=== PATIENT | male | born 1970 | race African-American/Black ===

== ENCOUNTER 2019-05-11 02:37 | Emergency (ER) | payer OTHER ==
--- NOTE | 2019-05-11 03:44 | RADIOLOGY REPORT (SQ) ---
EXAM DESCRIPTION: XR ANKLE 3 OR MORE VIEWS COMPLETED DATE/TME: 05/11/2019 00:00 CLINICAL HISTORY: 48 years, Male, accidentally kicked cabinet COMPARISON: None. NUMBER OF VIEWS: 3 TECHNIQUE: 3 view left ankle LIMITATIONS: None. FINDINGS: Negative for acute fracture or dislocation. Postsurgical change of the ankle. Well-corticated ossific densities near the medial malleolus consistent with old injury IMPRESSION: No acute osseous abnormality copyright 2010 [employer]- All Rights Reserved
--- NOTE | 2019-05-11 03:54 | ER Document Report ---
HPI - HPI Patient complains to provider of: left ankle pain Time Seen by Provider: 05/11/19 03:00 Onset: Yesterday Onset/Duration: Sudden, Persistent Quality of pain: Achy Severity: Moderate Pain Level: 3 Context: This 48-year-old male presents emergency department with complaints of left ankle pain. Reports he was goofing around with the kids and hit it against the counter. Reports history of plates and screws in his ankle. Reports is been hurting since that time unable to walk without pain. Patient reports he came the emergency department this early in the morning because his made him. Patient laughing no distress Associated Symptoms: None Exacerbated by: Movement, Walking Relieved by: Denies Similar symptoms previously: Yes Recently seen / treated by doctor: No - MUSCULOSKELETAL Musculoskeletal: REPORTS: Extremity pain - left - DERM Skin Color: Normal Past Medical History - General Information source: Patient - Social History Smoking Status: Current Every Day Smoker Cigarette use (# per day): Yes Chew tobacco use (# tins/day): No Frequency of alcohol use: Social Lives with: Family Family History: None Patient has suicidal ideation: No Patient has homicidal ideation: No Pulmonary Medical History: Reports: Hx Asthma Endocrine Medical History: Reports: Hx Diabetes Mellitus Type 2 Traumatic Medical History: Reports: Hx Fractures Past Surgical History: Reports: Hx Orthopedic Surgery Vertical Provider Document - CONSTITUTIONAL Agree With Documented VS: Yes Exam Limitations: No Limitations General Appearance: WD/WN, No Apparent Distress - INFECTION CONTROL TRAVEL OUTSIDE OF THE [place] IN LAST 30 DAYS: No - HEENT HEENT: Atraumatic, Normocephalic - NECK Neck: Supple - RESPIRATORY Respiratory: No Respiratory Distress - CARDIOVASCULAR Cardiovascular: Regular Rate - MUSCULOSKELETAL/EXTREMETIES Musculoskeletal/Extremeties: MAEW, FROM, Tender - Left ankle tender to palpate no obvious deformity good cap refill less than 3 seconds good pedal pulse complains of pain anteriorly and laterally. No obvious deformity no swelling no erythema no warmth - NEURO Level of Consciousness: Awake, Alert, Appropriate Motor/Sensory: No Motor Deficit - DERM Integumentary: Warm, Dry Course - Re-evaluation Re-evalutation: 05/11/19 03:54 To the emergency department with history of ankle injury and recent injury after he was playing with his kids and he kicked a cabinet. Reports pain since that time. No obvious injury noted x-ray negative. Patient was instructed. Patient was offered and accepted crutches and ankle stirrup splint. He was instructed to follow-up with primary care provider or orthopedics for continued pain he verbalized understand all instructions. Ankle X-Ray 05/11/19 00:00 IMPRESSION: No acute osseous abnormality copyright 2011 [employer]- All Rights Reserved 05/11/19 04:08 - Vital Signs Vital signs: Temp Pulse Resp BP Pulse Ox 98.1 F 79 17 141/89 H 96 05/11/19 02:40 05/11/19 02:40 05/11/19 02:40 05/11/19 02:40 05/11/19 02:40 - Diagnostic Test Radiology reviewed: Image reviewed, Reports reviewed Procedures - Immobilization Left Ankle Pre-Proc Neuro Vasc Exam: Normal Immobilizer type: Ankle stirrup Performed by: PCT Post-Proc Neuro Vasc Exam: Unchanged from pre-exam Alignment checked and good: Yes Discharge - Discharge Clinical Impression: Left ankle injury Qualifiers: Encounter type: initial encounter Qualified Code(s): S99.912A - Unspecified injury of left ankle, initial encounter Condition: Stable Disposition: HOME, SELF-CARE Instructions: Ankle Stirrup Splint ([facility]), Use of Crutches ([facility]), Use of Rjds-Goh-Halqqov Ibuprofen ([facility]), Ice & Elevation ([facility]) Additional Instructions: *You have been evaluated for an ankle injury *Rest/Ice/Elevate your ankle *Maintain the splint and use your crutches for the next few days *Follow up with orthopedics for continued pain *Take ibuprofen as indicated for pain *Return to ED for worsening condition, changes, needs Monitor your blood pressure. Your blood pressure was elevated today. This may be because you were anxious, in pain or because you need medication. It is important to follow up with your primary care provider for full evaluation. Forms: Elevated Blood Pressure
[2019-05-11 04:26] VITALS: BP 152/100
== END 2019-05-11 04:41 | disposition home or self-care (01) ==
LOC: ER 02:37
DX: S99.912A Unspecified injury of left ankle, initial encounter (principal); M25.572 Pain in left ankle and joints of left foot; W22.09XA Striking against other stationary object, initial encounter; F17.210 Nicotine dependence, cigarettes, uncomplicated; E11.9 Type 2 diabetes mellitus without complications
CPT/HCPCS: 73610; L1902; 99283